=== PATIENT | male | born 1975 ===

== ENCOUNTER 2021-10-22 08:10 | Observation (INO) ==
--- NOTE | 2021-10-22 08:31 | Emergency Department Note ---
History of Present Illness General Chief complaint: Neck Injury/Pain Stated complaint: NECK PAIN Time Seen by Provider: 10/22/21 08:17 History of Present Illness Maximum Pain Intensity: 8 This is a 45-year-old male that presents to the emergency department via private vehicle accompanied by male with complaints of "neck pain". The patient has had ongoing neck pain for the past 1.5 months. He states that he initially was evaluated at [facility] emergency department and subsequently followed up with Dr. Edward. He had an MRI. He was diagnosed with left-sided cervical radiculopathy. He was to have surgery yesterday. This was canceled. Patient notes continued and ongoing pain. Current pain 04/30. Patient denies any fevers, chills, chest pain or shortness of breath. He notes intermittent numbness/tingling into the left upper extremity. The pain at times radiates the entire length of the left upper extremity. Home Medications Medication Instructions Recorded Confirmed Type carbamazepine 200 mg tablet See Rx Instructions .ROUTE .COMPLEX 09/25/21 10/22/21 History (Tegretol) lisinopril 5 mg tablet 10 mg PO QAM 09/25/21 10/22/21 History gabapentin 400 mg capsule 800 mg PO TID 10/22/21 10/22/21 History Allergies Allergy/AdvReac Type Severity Reaction Status Date / Time Penicillins Allergy Unknown PT STATES Verified 10/22/21 08:46 OCCURED A CHILD, UNK RXN Past Med/Surg History Medical History HTN (hypertension) Neck pain Seizure disorder Last seizure at age 16 - no longer follows with neuro Follows with PCP- well controlled with Tegretol Sleep apnea CPAP Surgical History History of left inguinal hernia repair History of lumbar surgery x 2 L5-S1 decompression fusion 03/23/2018: Grade 1 view, MAC#3, ETT#8 atraumatic. No issues per anesthesia postop progress note. Family History Other No family history of adverse response to anesthesia Social History Smoking Status: Never smoker Second Hand Exposure: No; Hx Alcohol Use: No Hx Substance Use: No Preferred Language: Beninese Communication Ability: Effective Equipment Or Machinery Cleaner Required: No Beliefs That Will Affect Care: None Current Living Situation: Spouse Feels Safe at Home: Yes Assistive Devices: Denture - Upper Review of Systems A total of 10 systems reviewed and were otherwise negative Physical Exam Vital Signs Vital Signs - 24 hr 10/22/21 08:14 Temperature 36.4 C L Temperature Source Temporal Artery Scan Pulse Rate 90 Respiratory Rate 20 Respiratory Effort / Characteristics Non-Labored Respiratory Depth Normal Blood Pressure 177/103 H Blood Pressure Mean 127 Pulse Oximetry 99 Oxygen Delivery Method Room Air Sepsis Recent Fever Within 48 Hours No Sepsis New/Unexplained Change in Mental Status N/A Sepsis Action Taken by Nursing No Action Required VITAL SIGNS - Vital signs and nursing notes were reviewed. Hypertensive, otherwise stable. GENERAL - 45-year-old male appearing his stated age who is in no acute distress but appears to be in pain. Communicates well with provider and answers questions appropriately. SKIN - Without rashes. No meningeal or petechial rash. HEAD - NC/AT. EYES - Sclera anicteric. EARS - No deformities of external structures noted on gross examination bilaterally. NOSE - Midline and without cyanosis. No epistaxis or purulent drainage noted. Septum midline without deviation or septal hematoma noted. MOUTH/OROPHARYNX - Without perioral cyanosis. Buccal mucosa pink and moist and without leukoplakia. Tongue midline with equal elevation of palate bilaterally. No tonsillar hypertrophy, erythema, or exudates noted. Good dentition noted. NECK - No nuchal rigidity. LUNGS - Chest wall symmetric without accessory muscle use, intercostals retractions, or central cyanosis. Normal vesicular breath sounds CTA B/L. No wheezes, rales, or rhonchi appreciated. CARDIAC - RRR with S1/S2. No murmur, rubs, or gallops appreciated. EXTREMITIES - No clubbing or peripheral cyanosis. +5/5 strength noted in UE/LE bilaterally. NEUROLOGIC - Cranial nerves II through XII grossly intact. Sensory intact to light touch throughout. PSYCH - A&Ox3 and cooperates fully with examiner. Pt is very pleasant and interacts well with examiner. Course Administered Medications Discontinued Medications Hydromorphone HCl (Hydromorphone Inj 0.5 Mg/0.5 Ml Syr) 0.5 mg IV NOW STA Stop: 10/22/21 09:17 Last Admin: 10/22/21 09:27 Dose: 0.5 mg Documented by: [id number] Medical Decision Making Laboratory Data Result diagrams: 10/22/21 08:39 10/22/21 08:39 Lab Results 10/22/21 10/22/21 10/22/21 Range/Units 08:28 08:39 08:39 WBC 4.48 L (4.8-10.8) K/uL RBC 4.83 (4.7-6.1) M/uL Hgb 17.0 (14.0-18.0) g/dL Hct 48.7 (42-52) % MCV 100.8 H (80-100) fL MCH 35.2 H (25-34) pg MCHC 34.9 (32-36) g/dL RDW Std Deviation 47.8 H (36.4-46.3) fL RDW Coeff of Britta 13.0 (11.5-14.5) % Plt Count 254 (130-400) K/uL MPV 9.0 (7.4-10.4) fL Immature Gran % (Auto) 0.0 % Neut % (Auto) 59.0 % Lymph % (Auto) 32.1 % [place] % (Auto) 7.1 % Eos % (Auto) 1.6 % Baso % (Auto) 0.2 % Neut # (Auto) 2.64 (1.4-6.5) K/uL Lymph # (Auto) 1.44 (1.2-3.4) K/uL [place] # (Auto) 0.32 (0.11-0.59) K/uL Eos # (Auto) 0.07 (0-0.5) K/uL Baso # (Auto) 0.01 (0-0.2) K/uL Immature Gran # (Auto) 0.00 (0.00-0.02) K/uL PT 10.9 (9.0-12.0) Seconds INR 1.1 (0.9-1.1) Sodium 136 (136-145) mmol/L Potassium 5.0 (3.5-5.1) mmol/L Chloride 103 (98-107) mmol/L Carbon Dioxide 26 (21-32) mmol/L Anion Gap 7 (3-11) BUN 26 H (6-23) mg/dl Creatinine 1.34 (0.6-1.4) mg/dl Est Cr Clr Drug Dosing 91.1 ml/min Est GFR ( Amer) 74.1 ml/min Est GFR (Non-Af Amer) 64.0 ml/min BUN/Creatinine Ratio 19.4 (10-20) Glucose 94 (70-99(Fasting)) mg/dl Calcium 9.2 (8.5-10.1) mg/dl Total Bilirubin 0.4 (0.2-1.0) mg/dl AST 20 (13-39) U/L ALT 20 (7-52) U/L Alkaline Phosphatase 116 H (34-104) U/L Total Protein 7.6 (6.0-8.3) gm/dl Albumin 4.7 (3.4-5.0) gm/dl Globulin 2.9 (2.5-4.0) gm/dl Albumin/Globulin Ratio 1.6 (0.9-2) MDM Narrative Patient was seen and evaluated as above in room C 11. Review was performed of nursing notes and vital signs. I did review pertinent previous visits and patient history. After obtaining a thorough history and physical examination the above work up was performed. Patient presents to us today with neck pain. It is predominantly on the left side. Patient notes that he was diagnosed with cervical radiculopathy. He follows with Dr. Edward. He was scheduled to have surgery. This was canceled yesterday. He presents for further evaluation and management of his ongoing and worsening neck discomfort. Options of care were discussed with the patient. I discussed this with Dr. Edward via phone. He will admit the patient for further evaluation and management of the neck discomfort with planned operative intervention. Patient happy with plan of care. Case discussed with case management as well and after discussion with them and additional Covid test was recommended as the one he had previously was out of date from admission standpoint. Laboratory studies reveal no significant process. Please refer to further documentation regarding his stay. GCS: 15 In the evaluation and treatment of this patient the following differential diagnoses were entertained: Fracture, dislocation, subluxation, contusion, cervical radiculopathy, infectious process, among others. Impression & Plan Cervical radiculopathy Discharge Plan Visit Data Chief Complaint: Neck Injury/Pain Stated Complaint: NECK PAIN ED Provider: Sukhi Patel ED Midlevel Provider: Kris Kramer Discharge Problem: Cervical radiculopathy Patient Disposition: Admitted As Inpatient Condition: Good Discharge Instructions Interventions: ED Discharge Assessment Last Done: 10/22/21 11:16
[2021-10-22 08:52] LABS: Basophils # (auto) 0.01 K/uL (0-0.2); Basophils % (auto) 0.2 %; Eosinophils # (auto) 0.07 K/uL (0-0.5); Eosinophils % (auto) 1.6 %; Hematocrit (blood only) 48.7 % (42-52); Lymphocytes # (auto) 1.44 K/uL (1.2-3.4); Lymphocytes % (auto) 32.1 %; Mean Corpuscular Hemoglobin 35.2 pg (25-34); Mean Corpuscular Hgb Conc 34.9 g/dL (32-36); Mean Corpuscular Volume 100.8 fL (80-100); Monocytes # (auto) 0.32 K/uL (0.11-0.59); Monocytes % (auto) 7.1 %; Neutrophils # (auto) 2.64 K/uL (1.4-6.5); Platelet Count 254 K/uL (130-400); RDW Standard Deviation 47.8 fL (36.4-46.3); Red Blood Count 4.83 M/uL (4.7-6.1); White Blood Count 4.48 K/uL (4.8-10.8)
[2021-10-22 08:59] LABS: INR 1.1 (0.9-1.1); Prothrombin Time 10.9 Seconds (9.0-12.0)
[2021-10-22 09:12] LABS: Albumin Globulin Ratio 1.6 (0.9-2); Albumin Level 4.7 gm/dl (3.4-5.0); BUN Creatinine Ratio 19.4 (10-20); Bilirubin,Total 0.4 mg/dl (0.2-1.0); Calcium 9.2 mg/dl (8.5-10.1); Creatinine Clr Calc Pharmacy 91.1 ml/min; Est GFR (African American) 74.1 ml/min; Globulin 2.9 gm/dl (2.5-4.0); Total Protein 7.6 gm/dl (6.0-8.3)
[2021-10-22] MEDS ORDERED: HYDROmorphone INJ 0.5 MG/0.5 ML SYR IV STA (09:16)
--- NOTE | 2021-10-22 10:05 | History & Physical Report ---
Date of Service October 22, 2021 Assessment & Plan (1) Cervical radiculopathy: Plan: Assessment cervical disc herniation C5-C6 with radiculopathy progressive neuro deficit. Plan at this time in light of his pain and weakness admitting the patient for an urgent anterior cervical discectomy and fusion C5-C6. Risk benefits pros cons alternatives were in detail. We will make him n.p.o. after midnight and plan for surgery tomorrow. History of Present Illness Chief Complaint: Neck and left arm pain with weakness Primary Care Provider: Alondra Sewell MD This is a 45-year-old male that presents with progressive worsening neck pain left arm pain with weakness noted in his biceps and grasp. Pain radiates down t he left arm into his index finger and thumb. Is been progressive in nature. The right upper extremity is asymptomatic. Is failed extensive course of nonoperative care is trialed various pain medications including ibuprofen and gabapentin without results. The pain does awaken her from sleep. Allergies Allergy/AdvReac Type Severity Reaction Status Date / Time Penicillins Allergy Unknown PT STATES Verified 10/22/21 08:46 OCCURED A CHILD, UNK RXN Home Medications Medication Instructions Recorded Confirmed Type carbamazepine 200 mg tablet See Rx Instructions .ROUTE .COMPLEX 09/25/21 10/22/21 History (Tegretol) lisinopril 5 mg tablet 10 mg PO QAM 09/25/21 10/22/21 History gabapentin 400 mg capsule 800 mg PO TID 10/22/21 10/22/21 History Past Med/Surg History Medical History HTN (hypertension) Neck pain Seizure disorder Last seizure at age 16 - no longer follows with neuro Follows with PCP- well controlled with Tegretol Sleep apnea CPAP Surgical History History of left inguinal hernia repair History of lumbar surgery x 2 L5-S1 decompression fusion 03/23/2018: Grade 1 view, MAC#3, ETT#8 atraumatic. No issues per anesthesia postop progress note. Family History Other No family history of adverse response to anesthesia Social History Smoking Status: Never smoker Second Hand Exposure: No; Hx Alcohol Use: No Hx Substance Use: No Preferred Language: Greenlandic Communication Ability: Effective Power And Recovery Shift Engineer Required: No Beliefs That Will Affect Care: None Current Living Situation: Spouse Feels Safe at Home: Yes Assistive Devices: Denture - Upper Physical Exam Physical Exam: On exam patient stopped distress. There is significant Spurling sign to the left negative to the right. He exhibits a 4-/5 left biceps compared to five or five on the right. His grasp is significant limited on the left compared to the right. Deltoids and triceps are symmetric 5/5. There is sensory deficit to cold and light touch left extremity compared to the right. Deep tendon reflexes diminished. Results & Data ([facility]) Vital Signs (Past 12 Hours) Vital Signs Temp Pulse Resp BP Pulse Ox 10/22/21 08:14 36.4 C L 90 20 177/103 H 99 Code Status & VTE Plan VTE Prophylaxis Plan VTE Prophylaxis will be ordered: Yes
[2021-10-22] MEDS ORDERED: LORazepam 0.5 MG TAB PO PRN (12:02)
[2021-10-22] MEDS ORDERED: ONDANSETRON INJ 2 MG/ML 2 ML VIAL IV PRN (12:02)
[2021-10-22] MEDS ORDERED: NALOXONE HCL 0.4 MG/1 ML VIAL/CARP IV PRN (12:02)
[2021-10-22] MEDS ORDERED: ACETAMINOPHEN 500 MG TAB PO PRN (12:02)
[2021-10-22] MEDS ORDERED: LORazepam 0.5 MG/1 ML VIAL IV PRN (12:02)
[2021-10-22] MEDS ORDERED: ONDANSETRON 4 MG OD TAB PO PRN (12:02)
[2021-10-22] MEDS ORDERED: oxyCODONE HCL IR 5 MG TAB (IMMEDIATE RELEASE) PO PRN (12:02)
[2021-10-22] MEDS ORDERED: traMADol HCL 50 MG TABLET PO PRN (12:02)
[2021-10-22] MEDS ORDERED: METOCLOPRAMIDE HCL INJ 5 MG/ML 2 ML VIAL IV PRN (12:02)
[2021-10-22] MEDS ORDERED: PROMETHAZINE HCL 12.5 MG in SODIUM CHLORIDE 0.9% 50 ML IV PRN (12:02)
[2021-10-22] MEDS ORDERED: ACETAMINOPHEN 1,000 MG/100 ML VIAL IV PRN (12:02)
[2021-10-22] MEDS ORDERED: HYDROmorphone INJ 0.5 MG/0.5 ML SYR IV PRN (12:02)
[2021-10-22] MEDS: lisinopril 10 MG TAB PO SCH (12:25)
--- NOTE | 2021-10-22 12:27 | Consultation ---
Date of Consultation October 22, 2021 Assessment & Plan (1) Cervical radiculopathy: (2) Seizure disorder: (3) HTN (hypertension): (4) Sleep apnea: This is a 45 yr old M with hx of seizure d/o, MIGUEL on CPAP and HTN who presents to ER 2/2 to neck pain with pain to Lshoulder/arm and numbness/tingling to fingers 1 and 2 for several weeks. Cervical Radiculopathy seen and evaluated by Dr. Edward Plan for Urgent ACDF tomorrow C5-C6 pain control per Dr. Edward - D/C tramadol due to hx of seizure and possibility to lower seizure threshold pre op hgb 17.0 IVF orders per ortho Seizure d/o continue Tegretol no hx of recent seizure HTN bp stable continue lisinopril MIGUEL pt may use own CPAP, order placed DVT ppx: SCD/TEDS, per ortho Dispo: per primary FULL CODE Pt was seen and examined in collaboration with Dr. Knight, please see addendum Thank you for this consultation. We will follow the patient with you during their hospital stay. You can reach a member of the [facility] Hospitalist Team 13/04 via hospitalist role on tiger text. Supervising Physician Co-Signing Physician Notes 45 yr old M with hx of seizure (last one at 17 years of age per pt) under tegretol, MIGUEL on CPAP and HTN presented to ER 2/ w/ c/o neck pain with pain w/ radiation to Lt shoulder and fingers for several weeks. He is a medical consult for urgent cervical spine ACDF tomorrow by orthospine. Labs reviewed. Monitor for ABL post op. Incentive angelique. Resume home meds. PT/OT, pain meds, DVT Px per Orthospine. Upon Exam GENERAL: Alert and oriented x3. NAD, on RA. HEENT: No pallor, no icterus. Pupils equal, round and reactive to light. Oral mucosa moist. NECK: No JVD, no neck masses. HEART: S1 and S2 heard. Regular rate and rhythm. No murmur, no gallop. RESPIRATORY SYSTEM: Normal AP diameter. No accessory muscle use. No wheezing, no crackles. ABDOMEN: Soft, bowel sounds present, nontender, no distention. CENTRAL NERVOUS SYSTEM: No facial droop. Speech is clear. Obeys simple commands. Moves extremities. EXTREMITIES: No edema, no erythema seen. I have seen and examined the patient and have discussed the case with the provider above. I agree with the assessment and plan as stated. History of Present Illness Requesting Physician: Dr. Edward Reason for Consultation: Medical management Attending Physician: Javier Edward, History of Present Illness This is a 45 yr old M with hx of seizure d/o, MIGUEL on CPAP and HTN who presents to ER 2/2 to neck pain with pain to Lshoulder/arm and numbness/tingling to fingers 1 and 2 for several weeks. This has been worsening and has failed an outpatient course of nonoperative treatment. Plan is to un dergo ACDF of C5-6. Other than neck and shoulder pain he offers no concerns. He denies f/c/s, chest pain, sob, n/v/d, abd pain, dizziness, lightheaded, dysuria, increased urg/freq with urination. He has a remote hx of seizure d/o as a child. He said they tried to wean him off tegretol years ago, but he would have break through seizures so he remains on tegretol. He also has hx of HTN controlled on lisinopril. Allergies Allergy/AdvReac Type Severity Reaction Status Date / Time Penicillins Allergy Unknown PT STATES Verified 10/22/21 08:46 OCCURED A CHILD, UNK RXN Home Medications Medication Instructions Recorded Confirmed Type carbamazepine 200 mg tablet See Rx Instructions .ROUTE .COMPLEX 09/25/21 10/22/21 History (Tegretol) lisinopril 5 mg tablet 10 mg PO QAM 09/25/21 10/22/21 History gabapentin 400 mg capsule 800 mg PO TID 10/22/21 10/22/21 History Patient History Medical History (Updated 10/22/21 @ 13:40 by Johana Simms PA-C) HTN (hypertension) Neck pain Seizure disorder Last seizure at age 16 - no longer follows with neuro Follows with PCP- well controlled with Tegretol Sleep apnea CPAP Surgical History History of left inguinal hernia repair History of lumbar surgery x 2 L5-S1 decompression fusion 03/23/2018: Grade 1 view, MAC#3, ETT#8 atraumatic. No issues per anesthesia postop progress note. Family History (Updated 10/22/21 @ 13:36 by Johana Simms PA-C) Other No family history of adverse response to anesthesia Denies family history of Coronary heart disease Cancer Social History Smoking Status: Never smoker Second Hand Exposure: No; Do You Dip or Chew Tobacco: Yes (10/21); Hx Alcohol Use: No Hx Substance Use: No Preferred Language: South Korean Communication Ability: Effective Manager Of Financial Reporting Required: No Beliefs That Will Affect Care: None Current Living Situation: Spouse and Family Current Living Situation Comment: 2 daughter, 12 & 8 Other Information That Helps Us Care for You: No Feels Safe at Home: Yes Safety Concerns: Feels Safe At This Time Assistive Devices: Denture - Upper Review of Systems Review of Systems: All systems reviewed & are unremarkable except as noted in HPI & below Physical Exam Physical Exam: Constitutional: WD/WN, vitals as above, NAD, sitting up in bed, pleasant, conversing easily Head: Normocephalic, Atraumatic Eyes: PERRL, conjunctivae normal, anicteric sclerae ENMT: external ear and nose normal, oropharynx normal Neck: trachea midline, no thyromegaly normal visual inspection Respiratory: normal respiratory effort, lungs clear to auscultation, no wheeze, rales, rhonchi. Normal insp/exp effort, no accessory muscle use Cardiovascular: RRR, no murmur, no edema Vessels: no JVD or carotid bruit Chest: normal inspection of chest Abdomen: normal bowel sounds, soft, nontender, no hepatosplenomegaly Musculoskeletal: no cyanosis or clubbing, extremities motor strength 5/5 Skin: no rashes, warm and dry normal turgor Neurologic: PERRL, EOMI, accommodation nl, no face palsy, no dysarthria CN's II-XI intact bilaterally and moves all extremities Psychiatric: A+Ox3, euthymic affect Lymphatic: no cervical or axillary lymphadenopathy : deferred Results & Data ([facility]) Vital Signs (Past 12 Hours) Vital Signs Temp Pulse Pulse Resp BP BP Pulse Ox 10/22/21 11:51 36.7 C 66 16 137/92 100 10/22/21 10:10 65 18 131/93 98 10/22/21 08:14 36.4 C L 90 20 177/103 H 99 Laboratory Results Short CBC 10/22/21 Range/Units 08:39 WBC 4.48 L (4.8-10.8) K/uL Hgb 17.0 (14.0-18.0) g/dL Hct 48.7 (42-52) % Plt Count 254 (130-400) K/uL BMP 10/22/21 08:39 Sodium 136 Potassium 5.0 Chloride 103 Carbon Dioxide 26 BUN 26 H Creatinine 1.34 Glucose 94 Calcium 9.2 Liver Function 10/22/21 Range/Units 08:39 Total Bilirubin 0.4 (0.2-1.0) mg/dl AST 20 (13-39) U/L ALT 20 (7-52) U/L Alkaline Phosphatase 116 H (34-104) U/L Albumin 4.7 (3.4-5.0) gm/dl Diagnostic Findings XR chest Pre-admission PA/Lat CLINICAL HISTORY: Preoperative evaluation. COMPARISON STUDY: Chest radiograph October 25, 2020 FINDINGS: Lung volumes are normal. Lungs are clear. There is no pneumothorax or pleural effusion. Cardiac size is normal. Mediastinal contours are normal. There is no evidence for pulmonary edema. IMPRESSION: No acute cardiopulmonary findings. 08/29/21 Cervical Spine MRI 1. Left paracentral disc protrusion/herniation at C5-C6 impinging upon the anterior margin of the spinal cord and producing asymmetric left foraminal encroachment and nerve root impingement. Medications Administered Current Inpatient Medications Acetaminophen (Acetaminophen 500 Mg Tab) 1,000 mg PO Q8H PRN PRN Reason: MILD Pain Scale 1,2,3 & Pre PT Stop: 11/21/21 12:01 Carbamazepine (Carbamazepine 200 Mg Tablet) 400 mg PO BID ZACHARY Stop: 11/21/21 20:59 Carbamazepine (Carbamazepine 200 Mg Tablet) 200 mg PO DAILY@1400 ZACHARY Stop: 11/21/21 13:59 Gabapentin (Gabapentin 800 Mg Tab) 800 mg PO TID ZACHARY Stop: 11/21/21 12:59 Hydromorphone HCl (Hydromorphone Inj 0.5 Mg/0.5 Ml Syr) 0.5 mg IV Q3H PRN PRN Reason: MOD pain (scale 4-6) & Pre PT Stop: 11/05/21 12:01 Hydromorphone HCl (Hydromorphone Inj 1 Mg/Ml Syringe) 1 mg IV Q3H PRN PRN Reason: severe pain (scale 7-10) Stop: 11/05/21 12:01 Clindamycin Phosphate 600 mg/ (Dextrose) 54 mls @ 100 mls/hr IV PREOP [facility] Stop: 10/24/21 05:59 Lactated Ringer's (Lr) 1,000 mls @ 75 mls/hr IV .[id number] [facility] Stop: 11/21/21 12:01 Last Admin: 10/22/21 13:14 Dose: 75 mls/hr Documented by: Promethazine HCl 12.5 mg/ (Sodium Chloride) 50.5 mls @ 202 mls/hr IV Q6H PRN PRN Reason: Nausea &/or Vomiting Stop: 11/21/21 12:01 Acetaminophen (Ofirmev) 1,000 mg in 100 mls @ 400 mls/hr IV Q8H PRN PRN Reason: Pain Rating 1-3 & Pre PT Stop: 10/25/21 12:01 Lorazepam (Ativan) 0.5 mg in 1 mls @ 1 mls/min IV Q8H PRN PRN Reason: Sedation/Anxiety Stop: 11/21/21 12:01 Lisinopril (Lisinopril 10 Mg Tab) 10 mg PO QAM [facility] Stop: 11/21/21 12:29 Last Admin: 10/22/21 12:25 Dose: Not Given Documented by: Lorazepam (Lorazepam 0.5 Mg Tab) 0.5 mg PO Q8H PRN PRN Reason: sedation/anxiety Stop: 11/21/21 12:01 Metoclopramide HCl (Metoclopramide Hcl Inj 5 Mg/Ml 2 Ml Vial) 10 mg IV Q6H PRN PRN Reason: Nausea &/or Vomiting Stop: 11/21/21 12:01 Naloxone HCl (Naloxone Hcl 0.4 Mg/1 Ml Vial/Carp) 0.1 mg IV Q5M PRN PRN Reason: Oversedation/respiratory dep Stop: 11/21/21 12:01 Ondansetron HCl (Ondansetron Inj 2 Mg/Ml 2 Ml Vial) 4 mg IV Q6H PRN PRN Reason: Nausea &/or Vomiting Stop: 11/21/21 12:01 Ondansetron HCl (Ondansetron 4 Mg Od Tab) 4 mg PO Q6H PRN PRN Reason: Nausea Stop: 11/21/21 12:01 Oxycodone HCl (Oxycodone Hcl Ir 5 Mg Tab (Immediate Release)) 5 - 10 mg PO Q4H PRN PRN Reason: mod to severe pain Stop: 11/05/21 12:01 Tramadol HCl (Tramadol Hcl 50 Mg Tablet) 50 - 100 mg PO Q4H PRN PRN Reason: Moderate-Severe pain & Pre PT Stop: 11/21/21 12:01 ECG Rate (beats per minute): 76 Rhythm: normal sinus
[2021-10-22] MEDS: LACTATED RINGER'S 1,000 ML IV SCH (13:14)
[2021-10-22] MEDS ORDERED: carBAMazepine 200 MG TABLET PO SCH ×2 (14:00→21:00)
[2021-10-22] MEDS: GABAPENTIN 800 MG TAB PO SCH ×2 (14:05→20:36)
[2021-10-22] MEDS: CARBAMAZEPINE 200 MG PO SCH ×2 (15:13→20:36)
[2021-10-22] MEDS: HYDROmorphone INJ 1 MG/ML SYRINGE IV PRN (18:03)
[2021-10-23] MEDS: LACTATED RINGER'S 1,000 ML IV SCH ×3 (02:42→21:50)
[2021-10-23] MEDS ORDERED: CLINDAMYCIN 600 MG/54 ML BAG IV SCH (06:00)
[2021-10-23] MEDS ORDERED: CLINDAMYCIN 600 MG in DEXTROSE 5% 50 ML IV SCH (06:00)
--- NOTE | 2021-10-23 07:38 | Anesthesiology Consultation ---
Date of Service October 23, 2021 Assessment & Plan (1) Encounter for pre-operative examination: Chart Review Chart Review: carpentry professional initiated History Surgery Operation Date: 10/23/21 07:00 Proposed Procedures p C5-C6 Anterior Cervical Discectomy Fusion - Javier Edward DO Height/Weight Height: 6 ft 1 in Weight: 109 kg Allergies Allergy/AdvReac Type Severity Reaction Status Date / Time Penicillins Allergy Unknown PT STATES Verified 10/22/21 08:46 OCCURED A CHILD, UNK RXN Medications Home Medications Medication Instructions Recorded Confirmed Last Taken carbamazepine 200 mg tablet See Rx Instructions .ROUTE .COMPLEX 09/25/21 10/22/21 10/22/21 (Tegretol) lisinopril 5 mg tablet 10 mg PO QAM 09/25/21 10/22/21 10/22/21 gabapentin 400 mg capsule 800 mg PO TID 10/22/21 10/22/21 10/22/21 Active Medications Generic Name Dose Route Start Last Admin Trade Name Freq PRN Reason Stop Dose Admin Carbamazepine 200 - 400 mg 10/22/21 21:00 10/22/21 20:36 Pt's Own Med: Carbamazepine 200 Mg Tablet PO 11/21/21 20:59 400 mg TID@0900,1200,2100 ZACHARY Administration Gabapentin 800 mg 10/22/21 13:00 10/22/21 20:36 Gabapentin 800 Mg Tab PO 11/21/21 12:59 800 mg TID ZACHARY Administration Hydromorphone HCl 1 mg 10/22/21 12:02 10/22/21 18:03 Hydromorphone Inj 1 Mg/Ml Syringe IV 11/05/21 12:01 1 mg Q3H PRN Administration severe pain (scale 7-10) Lactated Ringer's 1,000 mls @ 75 mls/hr 10/22/21 12:02 10/23/21 02:42 Lr IV 11/21/21 12:01 75 mls/hr .[id number] ZACHARY Administration Acetaminophen 1,000 mg in 100 mls @ 400 mls/hr 10/22/21 12:02 10/22/21 15:32 Ofirmev IV 10/25/21 12:01 Infused Q8H PRN Infusion Pain Rating 1-3 & Pre PT Lisinopril 10 mg 10/22/21 12:30 10/22/21 12:25 Lisinopril 10 Mg Tab PO 11/21/21 12:29 Not Given QAM ZACHARY Oxycodone HCl 5 - 10 mg 10/22/21 12:02 10/22/21 15:55 Oxycodone Hcl Ir 5 Mg Tab (Immediate Release) PO 11/05/21 12:01 10 mg Q4H PRN Administration mod to severe pain NPO Date Last Intake of Fluids: 10/22/21 Time Last Intake of Fluids: 23:00 Date Last Intake of Solids: 10/22/21 Time Last Intake of Solids: 17:00 Past Medical History Medical History HTN (hypertension) Neck pain Seizure disorder Last seizure at age 16 - no longer follows with neuro Follows with PCP- well controlled with Tegretol Sleep apnea CPAP Past Family History Family History Other No family history of adverse response to anesthesia Denies family history of Coronary heart disease Cancer Past Surgical History Surgical History History of left inguinal hernia repair History of lumbar surgery x 2 L5-S1 decompression fusion 03/23/2018: Grade 1 view, MAC#3, ETT#8 atraumatic. No issues per anesthesia postop progress note. Social History Smoking Status: Never smoker tobacco type: smokeless tobacco Do You Dip or Chew Tobacco: Yes (10/21) Hx Alcohol Use: No Hx Substance Use: No substance use type: does not use Physical Exam Vital Signs Last Vital Signs Temp 98.2 F 10/23/21 06:59 Pulse 65 10/23/21 06:59 Resp 16 10/23/21 06:59 BP 123/80 10/23/21 06:59 Pulse Ox 97 10/23/21 06:59 Testing Laboratory Results 10/22/21 08:39 10/22/21 08:39 PT 10.9 Seconds (9.0-12.0) 10/22/21 08:28 INR 1.1 (0.9-1.1) 10/22/21 08:28 Laboratory Tests 10/22/21 09:23 SARS-CoV-2, RNA, NAAT NEGATIVE Electrocardiogram Date: 10/09/21 Normal sinus rhythm, rate 76 bpm Left axis deviation Abnormal ECG When compared with ECG of 25-OCT-2020 10:13, No significant change was found Confirmed by Andre Meehan ([id number]) on 10/09/2021 8:52:28 PM Chest X-Ray Date: 10/09/21 Findings: + NAD
[2021-10-23] MEDS: CARBAMAZEPINE 200 MG PO SCH ×3 (08:30→21:58)
--- NOTE | 2021-10-23 08:48 | History & Physical Bridge Note ---
Date of Service October 23, 2021 History & Physical Bridge Note I have examined the patient, reviewed the History & Physical and in the interval since the performance of the History & Physical I have noted the following changes of clinical significance: Patient continues present with progressive deficits to the left bicep and grasp.Is noticeably worsened his pain is clearly been progressive in his deficits worsening recommending emergent decompression fusion hopefully halt a progressive strength deficit and hopefully obtain some return of strength.
[2021-10-23] MEDS ORDERED: PROPOFOL IV EMULSION 10 MG/ML 100 ML VIAL IV ONE (09:29)
[2021-10-23] MEDS ORDERED: ceFAZolin 330 MG/ML 1 GM VIAL ONE (10:57)
[2021-10-23] MEDS ORDERED: ePHEDrine sulfate 50 MG/ML AMP IV PRN (10:59)
[2021-10-23] MEDS ORDERED: ATROPINE SULFATE 0.1 MG/ML 10ML SYR IV PRN (10:59)
[2021-10-23] MEDS ORDERED: ONDANSETRON INJ 2 MG/ML 2 ML VIAL IV PRN ×2 (10:59→14:30)
[2021-10-23] MEDS ORDERED: FLOSEAL HEMOSTATIC MATRIX 10ML TOP ONE (11:47)
[2021-10-23] MEDS ORDERED: ROCURONIUM BROMIDE 10 MG/ML 5 ML VIAL IV ONE ×2 (12:08→12:24)
[2021-10-23] MEDS ORDERED: PROPOFOL IV EMULSION 10 MG/ML 20 ML VIAL IV ONE (12:08)
[2021-10-23] MEDS ORDERED: LIDOCAINE 2% 2 ML VIAL/AMP(20MG/ML) INFIL ONE (12:08)
[2021-10-23] MEDS ORDERED: DEXAMETHASONE SOD INJ 4 MG/ML VIAL IV ONE (12:08)
[2021-10-23] MEDS ORDERED: SUCCINYLCHOLINE CHLORIDE 20 MG/ML 10 ML VIAL IV ONE (12:08)
[2021-10-23] MEDS ORDERED: ONDANSETRON INJ 2 MG/ML 2 ML VIAL IV ONE (12:08)
[2021-10-23] MEDS ORDERED: NEOSTIGMINE METHYLSULFATE 1 MG/ML 10ML VIAL IM ONE (12:08)
[2021-10-23] MEDS ORDERED: MIDAZOLAM HCL 1 MG/ML 2ML VIAL IV ONE (12:08)
[2021-10-23] MEDS ORDERED: GLYCOPYRROLATE 0.2 MG/ML VIAL IM ONE (12:08)
[2021-10-23] MEDS ORDERED: fentaNYL citrate 100 MCG/2 ML VIAL IV ONE (12:08)
[2021-10-23] MEDS ORDERED: PHENYLEPHRINE 100MCG/ML 5ML SYR IV ONE (12:08)
[2021-10-23] MEDS ORDERED: PHENYLEPHRINE 100MCG/ML 5ML SYR ONE (12:24)
--- NOTE | 2021-10-23 12:31 | Operative Report ---
Post Operative Report Pre & Post Diagnosis Operation Date: 10/23/21 07:00 Pre-Op Diagnosis: Cervical Disk Herniation with Radiculopathry Post-Op Diagnosis: Cervical Disk Herniation with Radiculopathry I identified the patient and participated in the time-out.: Yes Procedure Operation Date: 10/23/21 07:00 Actual Procedures #1 anterior cervical discectomy with bilateral foraminotomies C5-C6. #2 anterior cervical arthrodesis C5-C6. #3 placement of 9 mm spiral cage filled with I factor C5-C6. #4 application of greene plate and screws across C5-C6. Surgeon Javier Edward, Locomotive Engineer Diesel Tala Marcelo Estimated Blood Loss 20 Findings Consistent with Post-Op Diagnosis Specimens None Indications This is a 45-year-old male who presents with massive discrimination C5-C6 and progressive advanced neurologic deficit and subsequently here for emergent decompression fusion. Description of Procedure Patient was met with identified informed consent obtained. Patient was then taken to the operative suite underwent a patient placed in spine position Reji table head Dee screwhead stoner and polisher. All bony prominences well-padded eyes inspected to ensure no external pressure placed upon the. This point the anterior cervical spine was prepped and draped in normal sterile fashion. With the assistance of fluoroscopy defy the C5-6 C6 disc base and a transverse incision was placed along the right anterior aspect of the cervical spinal lines region. Blunt dissection with the assistance of bipolar electrocautery was performed until exposing anterior cervical spine at C5-C6. Self-retaining retractors placed. Then performed a complete discectomy of C5-C6 out to the uncovertebral's bilaterally. [place] distractor pins utilized to assist in visualization. Removed all posterior fibers longitudinal ligament bilateral rhomboids performed evidence of massive disc material out in the left neuroforamen and to a lesser degree the right neural foramen. The removed in its entirety. The endplates were then burred to subcortical bleeding bone and a 9 mm spiral cage filled I factor tapped in position. Distracting apparatus was removed and 5 complete screws applied with the assistance of fluoroscopy. The incision was then copiously irrigated explored to ensure no damage to surround ing structures remaining bleeding. 10 round OSMAN drain inserted. The incision was then closed with 2 Vicryl in a fashion of 4 Monocryl for final skin closure. Steri-Strip sterile dressings placed. Patient waken taken PACU stable condition. Please note spinal cord monitoring was last that the procedure no changes noted. Lastly Tala Marcelo was present at the entire surgery and while the patient positioning complex portions of the surgery and final skin closure. I attest to the content of the Intraoperative Record and any orders documented therein. Any exceptions are noted below.
[2021-10-23] MEDS: fentaNYL citrate 100 MCG/2 ML VIAL IV PRN ×2 (13:02→13:07)
--- NOTE | 2021-10-23 13:04 | Fluoroscopy Report ---
FL cervical 2-3V CLINICAL HISTORY: ACDF C5-6 COMPARISON STUDY: None FLUOROSCOPY TIME: 12 seconds. FLUOROSCOPIC IMAGES: 2 FINDINGS: The patient is status post anterior plate and screw fixation at C5-6. Disc spacers also in place. IMPRESSION: Status post internal fixation at C5-6. ACT 112: Negative or not required by law. Electronically signed by: Harsha Collins M.D. 10/23/2021 1:03 PM
[2021-10-23] MEDS: HYDROmorphone INJ 1 MG/ML SYRINGE IV PRN ×2 (13:11→17:31)
[2021-10-23] MEDS: HYDROmorphone INJ 2 MG/ML SYR/VIAL IV PRN ×3 (13:12→13:29)
--- NOTE | 2021-10-23 14:20 | Anesthesiology Progress Note ---
Date of Service October 23, 2021 Anesthesia Post Procedure Vital Signs Vital Signs: Temp Pulse Pulse Resp BP Pulse Ox 10/23/21 13:50 36.5 C 74 16 129/96 95 10/23/21 13:40 70 12 143/95 H 95 10/23/21 13:30 72 14 133/92 95 10/23/21 13:20 65 12 143/96 H 95 10/23/21 13:10 73 16 142/98 H 96 10/23/21 13:00 80 16 142/103 H 96 10/23/21 12:50 76 16 177/105 H 97 10/23/21 12:44 36.9 C 80 16 161/113 H 96 10/23/21 09:58 36.8 C 72 18 140/99 96 10/23/21 06:59 36.8 C 65 16 123/80 97 10/22/21 22:03 36.4 C L 78 16 129/84 97 10/22/21 16:28 36.6 C 66 16 119/76 98 Pain Intensity Neck: Pain Intensity: 4 Left Arm: Pain Intensity: 5 Transfer of Care Handoff Completed per policy Notes Mental Status: alert / awake / arousable and participated in evaluation Patient Amnestic to Procedure: Yes Nausea / Vomiting: adequately controlled Pain: adequately controlled Airway Patency, RR, SpO2: stable & adequate BP & HR: stable & adequate Hydration State: stable & adequate Anesthetic Complications: no major complications apparent and Pt Satisfied with anesthetic care
[2021-10-23] MEDS ORDERED: SOD PHOSPHATE/SOD BIPHOSPHATE ENEMA 132 ML BTL PR PRN (14:30)
[2021-10-23] MEDS ORDERED: PROMETHAZINE HCL 12.5 MG in SODIUM CHLORIDE 0.9% 50 ML IV PRN (14:30)
[2021-10-23] MEDS ORDERED: ONDANSETRON 4 MG OD TAB PO PRN (14:30)
[2021-10-23] MEDS ORDERED: hydrOXYzine HCl 25 MG TAB PO PRN (14:30)
[2021-10-23] MEDS ORDERED: traMADol HCL 50 MG TABLET PO PRN (14:30)
[2021-10-23] MEDS ORDERED: oxyCODONE HCL IR 5 MG TAB (IMMEDIATE RELEASE) PO PRN (14:30)
[2021-10-23] MEDS ORDERED: FAMOTIDINE 20 MG TAB PO PRN (14:30)
[2021-10-23] MEDS ORDERED: ACETAMINOPHEN 500 MG TAB PO PRN (14:30)
[2021-10-23] MEDS ORDERED: LORazepam 0.5 MG/1 ML VIAL IV PRN (14:30)
[2021-10-23] MEDS ORDERED: LORazepam 0.5 MG TAB PO PRN (14:30)
[2021-10-23] MEDS ORDERED: diphenhydrAMINE Capsule 25 MG CAP PO PRN (14:30)
[2021-10-23] MEDS ORDERED: ALUMINUM/MAGNESIUM SUSP 30 ML UDC PO PRN (14:30)
[2021-10-23] MEDS ORDERED: RACEPINEPHRINE 2.25% NEBU SOLN 0.5 ML VIAL INH PRN (14:30)
[2021-10-23] MEDS ORDERED: dexAMETHasone 8 MG in SYRINGE 0 ML IV PRN (14:30)
[2021-10-23] MEDS ORDERED: NALOXONE HCL 0.4 MG/1 ML VIAL/CARP IV PRN (14:30)
[2021-10-23] MEDS ORDERED: bisacodyL 10 MG SUPP PR PRN (14:30)
[2021-10-23] MEDS ORDERED: HYDROmorphone INJ 0.5 MG/0.5 ML SYR IV PRN (14:30)
[2021-10-23] MEDS ORDERED: ACETAMINOPHEN 1,000 MG/100 ML VIAL IV PRN (14:30)
[2021-10-23] MEDS ORDERED: METOCLOPRAMIDE HCL INJ 5 MG/ML 2 ML VIAL IV PRN (14:30)
[2021-10-23] MEDS ORDERED: MAGNESIUM HYDROXIDE SUSP 30 ML UDC PO PRN (14:30)
[2021-10-23] MEDS ORDERED: DO NOT ADMINISTER PNEUMOCOCCAL VACCINE PRN (14:30)
[2021-10-23] MEDS ORDERED: DO NOT ADMINISTER FLU VACCINE PRN (14:30)
[2021-10-23] MEDS: lisinopril 10 MG TAB PO SCH (14:32)
[2021-10-23] MEDS: GABAPENTIN 800 MG TAB PO SCH ×3 (14:32→21:57)
--- NOTE | 2021-10-23 17:08 | Hospitalist Progress Note ---
Date of Service October 23, 2021 Assessment & Plan (1) Cervical radiculopathy: (2) Seizure disorder: (3) HTN (hypertension): (4) Sleep apnea: Plan: 45 yr old M with hx of seizure d/o, MIGUEL on CPAP and HTN who presents to ER 2/2 to neck pain with pain to Lshoulder/arm and numbness/tingling to fingers 1 and 2 for several weeks. Cervical Radiculopathy S/p ACDF C5-C6 today Continue pain control with oxycodone and dilaudid Hold tramadol for now due to h/o seizure pre op hgb 17.0 Check Hb tomorrow Seizure d/o continue Tegretol no hx of recent seizure HTN BP stable Continue lisinopril MIGUEL pt may use own CPAP DVT ppx: SCD/TEDS, per ortho Dispo: per primary FULL CODE Admission and Anticipated Discharge Date Admission Date: October 22, 2021 Subjective Patient seen and examined post op Patient reports some periop site pain. Denied any cough, shortness of breath, chest pain Denied nausea, vomiting, abd pain Yet to pass flatus or had BM Physical Exam Constitutional: + well hydrated; no acute distress Eyes: PERRL, conjunctivae normal, anicteric sclerae Neck: Neck collar in place Drain in situ Respiratory: normal respiratory effort, lungs clear to auscultation Cardiovascular: Rate/Rhythm: regular rate S1 S2 Gastrointestinal (Abdomen): normal bowel sounds, soft, nontender, no hepatosplenomegaly Musculoskeletal: no cyanosis or clubbing, extremities motor strength 5/5 Neurologic: PERRL, EOMI, accommodation nl, no face palsy, no dysarthria Psychiatric: A+Ox3, euthymic affect Results & Data Results & Data ([facility]) Vital Signs (Past 12 Hours) Vital Signs Temp Pulse Pulse Resp BP Pulse Ox 10/23/21 16:15 36.5 C 78 14 143/91 H 94 10/23/21 15:22 75 16 95 10/23/21 15:16 36.7 C 83 16 148/100 H 95 10/23/21 14:45 36.7 C 72 16 141/91 H 95 10/23/21 14:15 36.7 C 75 16 134/89 96 10/23/21 13:50 36.5 C 74 16 129/96 95 10/23/21 13:40 70 12 143/95 H 95 10/23/21 13:30 72 14 133/92 95 10/23/21 13:20 65 12 143/96 H 95 10/23/21 13:10 73 16 142/98 H 96 10/23/21 13:00 80 16 142/103 H 96 10/23/21 12:50 76 16 177/105 H 97 10/23/21 12:44 36.9 C 80 16 161/113 H 96 10/23/21 09:58 36.8 C 72 18 140/99 96 10/23/21 06:59 36.8 C 65 16 123/80 97
[2021-10-23] MEDS: CLINDAMYCIN 600 MG in DEXTROSE 5% 50 ML IV SCH (17:57)
[2021-10-23] MEDS ORDERED: DOCUSATE SODIUM/SENNA 50/8.6MG TAB PO SCH (21:00)
[2021-10-23] MEDS ORDERED: cloNIDine HCL 0.1 MG TAB PO ONE (22:17)
[2021-10-24] MEDS: HYDROmorphone INJ 1 MG/ML SYRINGE IV PRN (01:12)
[2021-10-24] MEDS: CLINDAMYCIN 600 MG in DEXTROSE 5% 50 ML IV SCH (02:17)
[2021-10-24] MEDS: LACTATED RINGER'S 1,000 ML IV SCH (05:09)
[2021-10-24] MEDS ORDERED: POLYETHYLENE (MIRALAX) 17 GM PACK PO SCH (06:00)
[2021-10-24 06:27] LABS: Mean Corpuscular Hemoglobin 35.6 pg (25-34); Mean Corpuscular Hgb Conc 35.6 g/dL (32-36); Mean Corpuscular Volume 100.2 fL (80-100); Platelet Count 232 K/uL (130-400); RDW Coefficient of Variation 12.9 % (11.5-14.5); Red Blood Count 4.49 M/uL (4.7-6.1); White Blood Count 7.95 K/uL (4.8-10.8)
[2021-10-24 06:57] LABS: BUN Creatinine Ratio 15.3 (10-20); Calcium 8.9 mg/dl (8.5-10.1); Creatinine Clr Calc Pharmacy 93.2 ml/min; Est GFR (African American) 76.2 ml/min; Est GFR (Non-African American) 65.8 ml/min; Potassium 4.4 mmol/L (3.5-5.1)
[2021-10-24] MEDS: GABAPENTIN 800 MG TAB PO SCH (07:49)
[2021-10-24] MEDS: CARBAMAZEPINE 200 MG PO SCH (07:49)
[2021-10-24] MEDS: lisinopril 10 MG TAB PO SCH (07:49)
--- NOTE | 2021-10-24 08:24 | Discharge Summary ---
Date of Service October 24, 2021 Admission HPI Per Admitting Provider This is a 45-year-old male that presents with progressive worsening neck pain left arm pain with weakness noted in his biceps and grasp. Pain radiates down the left arm into his index finger and thumb. Is been progressive in nature. The right upper extremity is asymptomatic. Is failed extensive course of nonoperative care is trialed various pain medications including ibuprofen and gabapentin without results. The pain does awaken her from sleep. Principal Diagnosis Cervical disc herniation with radiculopathy and progressive neuro deficit Discharge Data Allergies Allergy/AdvReac Type Severity Reaction Status Date / Time Penicillins Allergy Unknown PT STATES Verified 10/22/21 08:46 OCCURED A CHILD, UNK RXN Consultations 10/22/21 08:28 ED Decision to Admit Stat 10/22/21 12:02 Consult Internal Medicine Routine Procedures Performed Operation Date: 10/23/21 07:00 Actual Procedures p C5-C6 Anterior Cervical Discectomy Fusion(Not Applicable) - Javier Edward DO Ordered Studies 10/23/21 10:30 FL cervical 2-3V Routine Hospital Course (1) Herniation of cervical intervertebral disc with radiculopathy: Patient was admitted with marked worsening left arm pain and progressive weakness and underwent emergent anterior cervical discectomy and fusion. Postop day #1 his arm symptoms are markedly improved. His strength had improved significantly from his preoperative status. He swallowing well. No hoarseness. OSMAN drain decreasing probably. Subsequent discharge home. Discharge orders instructions from chart for further review. Total Time Total Time Spent Total Time Spent (In Minutes): 20 minutes Discharge Plan Discharge Items Patient Disposition: Home - Self-Care Reason For Visit: CERVICAL RADICULOPATHY Discharge Diagnosis: Cervical radiculopathy Condition on Discharge: Good Activity: As commented below Non-emergency contact: Primary Care Provider Call non-emergency contact if: you have any medication questions Follow-up/Referrals: Alondra Sewell MD [Primary Care Provider] - Diet: Regular Addtl Attending Provider Instructions: ACTIVITY RECOMMENDATIONS: SELF CARE INSTRUCTIONS AFTER CERVICAL FUSIONS 1. No smoking. Smoking drastically decreases the chance of a solid fusion. 2. No bending, lifting more than 5 pounds, or twisting (roll like a log when turning in bed). 3. You may shower 3 days after surgery. Thoroughly dry wound. Do not soak in the tub. 4. Cervical collar: Must be worn at all times including sleeping. You may remove the brace only to bath, eat and if you are sitting in a recliner. 5. Please walk as much as you can for exercise. Gradually increase the distance that you walk as your endurance increases. SPECIAL CARE INSTRUCTIONS: VERY IMPORTANT TO READ AND REVIEW A. Do not take any anti-inflammatory medications (i.e. Indocin, Advil, Aspirin, Naprosyn, Aleve, Motrin, etc.) as these may inhibit the chance of a solid fusion. Tylenol is okay to take. B. Your surgical incision has been closed with a cosmetic suture under the skin that will dissolve in about 6 weeks. In 14 days, you can use a pair of clean scissors and cut the suture that is left outside of the skin at the ends of your incision. C. Complications are uncommon, but please contact us if you have any signs or symptoms of: 1. wound infection (fever higher than 102.5 degrees F, redness, separation of wound, drainage, or increasing pain from the incision) 2. blood clots in legs (pain, swelling, redness and warmth in legs) 3. urinary tract infection (fever higher than 102.5 degrees, burning upon urination or increased frequency of urination) 4. nerve problems (inability to walk on your toes or heels, numbness, loss of bowel or bladder control) 5. any other symptoms that concern you. D. Please call the office at if you have any concerns or questions about your operation or recovery. MANAGING PAIN AFTER SPINAL SURGERY 1. Narcotic medication is intended for short-term use and will be provided for surgical pain. Surgical pain usually lasts for a period of 4-6 weeks. Narcotic medication includes Percocet, Vicodin, Darvocet, Tylenol #3 or Lortab. 2. Longer-term pain is more appropriately treated with non-narcotic medication such as Tylenol ES. 3. Muscle spasm is not appropriately treated with narcotics. Muscle relaxers such as Soma, Flexeril or Skelaxin can be used along with Tylenol ES. 4. Remember that we all live with some "aches and pains". This is not unusual or uncommon after an injury or as we get older. 5. We will provide appropriate medication within the normal guidelines of their prescribed use. We will also be very cautious and aware of potential abuse and extended duration of patients' medication needs. 6. Please allow 2-3 days to process refills. Prescriptions will not be mailed but must be picked up at the office. FOLLOW UP VISIT: Keep your scheduled follow-up appointment. Any questions, please call the office at . Pending Studies at Discharge: No Stand-Alone Forms: My [facility], Smoking Cessation Medications and DC Order Prescriptions: New tramadol 50 mg tablet 50 mg PO Q6H PRN (Reason: pain, moderate) Qty: 20 RF: 0 oxycodone 5 mg tablet 5 mg PO Q6H PRN (Reason: pain, severe) Qty: 20 RF: 0 Continued carbamazepine [Tegretol] 200 mg Tablet See Rx Instructions .ROUTE .COMPLEX RF: 0 lisinopril 5 mg Tablet 10 mg PO QAM RF: 0 gabapentin 400 mg capsule 800 mg PO TID RF: 0 Discharge Orders: Discharge Order (Routine); Ordered 10/24/21 Ordered By: Javier Edward Admission Data Admit Date/Time: 10/22/21 09:00 Attending Provider: Javier Edward Admit Provider: Javier Edward Primary Care Provider: Alondra Sewell Other Providers: Lizz Calero I. ; Javier Edward
--- NOTE | 2021-10-24 08:45 | Hospitalist Progress Note ---
Date of Service October 24, 2021 Assessment & Plan (1) Cervical radiculopathy: (2) Seizure disorder: (3) HTN (hypertension): (4) Sleep apnea: Plan: This is a 45 yr old M with hx of seizure d/o, MIGUEL on CPAP and HTN who presents to ER 2/2 to neck pain with pain to Lshoulder/arm and numbness/tingling to fingers 1 and 2 for several weeks. Cervical Radiculopathy POD#1 S/p ACDF C5-C6 Continue pain control with oxycodone and dilaudid Hold tramadol for now due to h/o seizure Hgb stable at 16 (17.0 yesterday) Check Hb tomorrow Seizure d/o continue Tegretol no hx of recent seizure HTN BP stable Continue lisinopril MIGUEL pt may use own CPAP DVT ppx: SCD/TEDS, per ortho Dispo: per primary FULL CODE Admission and Anticipated Discharge Date Admission Date: October 22, 2021 Supervising Physician Co-Signing Physician Notes Patient was discharged prior to my evaluation today However was seen by Lindsay Sewell PA-C as documented Subjective Seen and examined in 302-1. Feeling well today, no cervical site pain, Did not sleep well last evening but no other complaints. No F/C, CP, SOB, N/V, ambominal pain. Urinating without issue, no bowel movement post-operatively. Review of Systems Review of Systems: At least ten systems reviewed and negative except as noted in the HPI. Physical Exam Physical Exam: Gen: WD/WN, NAD, sitting in bed, A&Ox3, cervical neck collar in place, OSMAN drain visualized HEENT: Normocephalic, atraumatic, conjunctivae moist, sclerae anicteric, mucous membranes moist Lung: Clear to Auscultation bilaterally, no wheezes/rales/rhonchi Heart: Regular rate, regular rhythm, no murmurs, rubs, or gallops Abdomen: Soft, NT, ND +BS x 4 Extremities: no edema Skin: Warm, no rash Results & Data Results & Data ([facility]) Vital Signs (Past 12 Hours) Vital Signs Temp Pulse Pulse Resp BP BP Pulse Ox 10/24/21 07:45 36.9 C 79 78 18 131/86 98 10/24/21 04:49 36.6 C 73 18 127/86 97 10/24/21 03:15 77 20 96 10/24/21 03:04 36.6 C 90 18 137/95 97 10/24/21 01:13 36.6 C 88 18 146/97 H 96 10/23/21 23:34 36.8 C 84 18 146/93 H 96 10/23/21 22:34 71 18 95 10/23/21 22:01 36.6 C 83 18 152/103 H 96 Laboratory Results Short CBC 10/24/21 Range/Units 05:21 WBC 7.95 (4.8-10.8) K/uL Hgb 16.0 (14.0-18.0) g/dL Hct 45.0 (42-52) % Plt Count 232 (130-400) K/uL BMP 10/24/21 05:21 Sodium 134 L Potassium 4.4 Chloride 98 Carbon Dioxide 31 BUN 20 Creatinine 1.31 Glucose 91 Calcium 8.9 Diagnostic Findings Cervical Spine X-Ray 10/23/21 10:30 FL cervical 2-3V CLINICAL HISTORY: ACDF C5-6 COMPARISON STUDY: None FLUOROSCOPY TIME: 12 seconds. FLUOROSCOPIC IMAGES: 2 FINDINGS: The patient is status post anterior plate and screw fixation at C5-6. Disc spacers also in place. IMPRESSION: Status post internal fixation at C5-6. ACT 112: Negative or not required by law. Electronically signed by: Harsha Collins M.D. 10/23/2021 1:03 PM
[2021-10-24] MEDS ORDERED: dexAMETHasone 6 MG in SYRINGE 0 ML IV SCH (09:00)
== END 2021-10-24 12:09 | disposition home or self-care (01) ==
LOC: ED 08:10 → 3E 09:00 → INTOOBSV 09:00 → 3E 11:16 → UNDODISIN 10-24 09:52